=== PATIENT | male | born 1970 | race African-American/Black ===

== ENCOUNTER 2017-08-13 20:51 | Emergency (ER) | payer BC, OTHER ==
--- NOTE | 2017-08-13 21:18 | PDOC ---
Rapid Medical Evaluation Time Seen by Provider: 08/13/17 21:12 Medical Evaluation: Allergies Allergy/AdvReac Type Severity Reaction Status Date / Time No Known Allergies Allergy Verified 08/01/15 02:14 08/13/17 21:12 I have performed a brief in-person person evaluation of the patient. The patient presents with a chief complaint of lower back pain since falling downstairs last week. Reports pain is getting worse and it is difficult to sit on butt. Denies bowel or bladder dysfunction Pertinent physical exam findings: NAD unlabored breathing lungs clear bilaterally heart [id number] [id number]: tenderness over coccyx I have ordered the following: analgesia, lumbosacral and coccyx xray, urinalysis The patient will proceed to the ED for further evaluation.
[2017-08-13 21:19] VITALS: BP 166/98; PULSE 76; TEMP 97.4; BMI 23.4
[2017-08-13] MEDS ORDERED: KETOROLAC TROMETHAMINE 30 MG/1 ML VIAL IM ONE (21:19)
[2017-08-13 21:45] LABS: URINE APPEARANCE CLEAR; URINE BILIRUBIN NEGATIVE (NEGATIVE); URINE BLOOD NEGATIVE (NEGATIVE); URINE COLOR YELLOW; URINE GLUCOSE (UA) NEGATIVE (NEGATIVE); URINE KETONE NEGATIVE (NEGATIVE); URINE LEUK ESTERASE NEGATIVE (NEGATIVE); URINE NITRITE NEGATIVE (NEGATIVE); URINE PROTEIN NEGATIVE (NEGATIVE)
[2017-08-13] MEDS ORDERED: KETOROLAC TROMETHAMINE 60 MG/2 ML VIAL ONE (22:42)
[2017-08-13] MEDS ORDERED: KETOROLAC TROMETHAMINE 60 MG/2 ML VIAL IM ONE (22:44)
--- NOTE | 2017-08-13 22:57 | PDOC ---
History of Present Illness - General Chief Complaint: Pain Stated Complaint: PAIN Time Seen by Provider: 08/13/17 21:12 History Source: Patient Exam Limitations: No Limitations - History of Present Illness Initial Comments: 08/13/17 22:55 Best Contact: Pmhx:N/A Pshx:N/A Allergies:NKDA 47-year-old male presents to the emergency department with his complaining of pain to the coccyx bone. Patient states he slipped and fell onto the edge of a uncooperative step 9 days ago while at work. Patient states he did not fall down a flight of stairs but his coccyx bone make contact with the edge of one step. Pain is described as 8/10 dull nonradiating intermittent discomfort. Pain is exacerbated while sitting and touch and alleviated at rest. Patient denies any head injuries, neck pains, chest pain, shortness of breath, abdominal pains , bladder or bowel dysfunction. Occurred: reports: other (x9d) Past History - Past Medical History Allergies/Adverse Reactions: Allergies Allergy/AdvReac Type Severity Reaction Status Date / Time No Known Allergies Allergy Verified 08/13/17 21:15 Home Medications: Ambulatory Orders NK [No Known Home Medication] 08/13/17 COPD: No Other medical history: Pt denies - Suicide/Smoking/Psychosocial Hx Smoking History: Never smoked Have you smoked in the past 12 months: No Information on smoking cessation initiated: No Hx Alcohol Use: No Drug/Substance Use Hx: No Substance Use Type: None Review of Systems - Review of Systems Able to Perform ROS?: Yes Comments:: 08/13/17 22:54 CONSTITUTIONAL: Absent: fever, chills, diaphoresis, generalized weakness, malaise, loss of appetite HEENT: Absent: rhinorrhea, nasal congestion, throat pain, throat swelling, difficulty swallowing, mouth swelling, ear pain, eye pain, visual Changes CARDIOVASCULAR: Absent: chest pain, loss of consciousness, palpitations, irregular heart rate, peripheral edema RESPIRATORY: Absent: cough, shortness of breath, dyspnea with exertion, orthopnea, wheezing, stridor, hemoptysis GASTROINTESTINAL: Absent: abdominal pain, abdominal distension, nausea, vomiting, diarrhea, constipation, melena, hematochezia MUSCULOSKELETAL: +"tailbone" pain Absent: myalgia, arthralgia, joint swelling SKIN: Absent: rash, itching, pallor HEMATOLOGIC/IMMUNOLOGIC: Absent: easy bleeding, easy bruising, lymphadenopathy, frequent infections ENDOCRINE: Absent: unexplained weight gain, unexplained weight loss, heat intolerance, cold intolerance NEUROLOGIC: Absent: headache, focal weakness or paresthesias, dizziness, unsteady gait, seizure, mental status changes, bladder or bowel incontinence Is the patient limited Pakistani proficient: No *Physical Exam - Vital Signs Last Vital Signs Temp Pulse Resp BP Pulse Ox 97.4 F L 76 19 166/98 97 08/13/17 21:16 08/13/17 21:16 08/13/17 21:16 08/13/17 21:16 08/13/17 21:16 - Physical Exam Comments: 08/13/17 22:54 GENERAL: Well developed, well nourished. Awake and alert. No acute distress. HEENT: Normocephalic, atraumatic. PERRLA, EOMI. No conjunctival pallor. Sclera are non- icteric. Moist mucous membranes. Oropharynx is clear. NECK: Supple. Full ROM. No JVD. Carotid pulses 2+ and symmetric, without bruits. No thyromegaly. No lymphadenopathy. CARDIOVASCULAR: Regular rate and rhythm. No murmurs, rubs, or gallops. Distal pulses are 2+ and symmetric. PULMONARY: No evidence of respiratory distress. Lungs clear to auscultation bilaterally. No wheezing, rales or rhonchi. ABDOMINAL: Soft. Non-tender. Non-distended. No rebound or guarding. No organomegaly. Normoactive bowel sounds. MUSCULOSKELETAL +coccyx bone pain on palp Normal range of motion at all joints. No bony deformities or tenderness. No CVA tenderness. EXTREMITIES: No cyanosis. No clubbing. No edema. No calf tenderness. SKIN: Warm and dry. Normal capillary refill. No rashes. No jaundice. NEUROLOGICAL: Alert, awake, appropriate. Cranial nerves 2-12 intact. No deficits to light touch and temperature in face, upper extremities and lower extremities. No motor deficits in the in face, upper extremities and lower extremities. Normoreflexic in the upper and lower extremities. Normal speech. Toes are down- going bilaterally. Gait is normal without ataxia. PSYCHIATRIC: Cooperative. Good eye contact. Appropriate mood and affect. ED Treatment Course - ADDITIONAL ORDERS Additional order review: Laboratory Results 08/13/17 21:28 Urine Color Yellow Urine Appearance Clear Urine pH 7.0 Ur Specific [place] 1.025 Urine Protein Negative Urine Glucose (UA) Negative Urine Ketones Negative Urine Blood Negative Urine Nitrite Negative Urine Bilirubin Negative Urine Urobilinogen 2.0 Ur Leukocyte Esterase Negative - Medications Given in the ED: ED Medications Discontinued Medications Generic Name Dose Route Start Last Admin Trade Name Yves PRN Reason Stop Dose Admin Ketorolac Tromethamine 30 mg 08/13/17 21:19 08/13/17 22:45 Toradol Injection - IM 08/13/17 21:20 Not Given ONCE ONE Ketorolac Tromethamine 60 mg 08/13/17 22:44 08/13/17 22:45 Toradol Injection - IM 08/13/17 22:45 60 mg ONCE ONE Administration *DC/Admit/Observation/Transfer Diagnosis at time of Disposition: Coccyx pain - Discharge Dispostion Disposition: HOME Condition at time of disposition: Stable Admit: No - Referrals Referrals: John Kaur MD [Primary Care Provider] - Miguel Wise MD [Staff Physician] - - Patient Instructions Printed Discharge Instructions: DI for Low Back Pain Additional Instructions: Ice; 20 mins on alternating with 20 mins off for 48 hours while awake. Rest Elevate Follow up with your orthopedic surgeon or the one listed on the discharge form. Return to the ER for severe/persistent/worsening symptoms, extremity numbness/ tingling sensation. - Post Discharge Activity Forms/Work/School Notes: Back to Work
== END 2017-08-13 22:30 | disposition home or self-care (01) ==
LOC: JERFT 20:51
PROC: 3E0233Z Introduction of Anti-inflammatory into Muscle, Percutaneous Approach (ICD-10-PCS; principal; 2017-08-13)
DX: M53.3 Sacrococcygeal disorders, not elsewhere classified (principal)
CPT/HCPCS: 72220-TC-FY; 81003; 99281-25

== ENCOUNTER 2019-12-06 10:58 | Emergency (ER) | payer BC, OTHER ==
[2019-12-06 11:03] VITALS: BP 128/80; PULSE 89; TEMP 98; BMI 32.3
--- NOTE | 2019-12-06 11:06 | PDOC ---
Suture Removal/Wound Check HPI - History of Present Illness Chief Complaint: Suture/Staple Removal(Here) Stated Complaint: SUTURE REMOVAL Time Seen by Provider: 12/06/19 11:02 History Source: Yes: Patient Exam Limitations: Yes: No Limitations Treated at: [facility] Date of Last ED visit: 11/30/19 - Previous ED Treatment Type of procedure performed on last visit: Yes: Laceration Repair Tetanus Immunization: Yes: Up to Date Past History - Travel History Traveled outside of the country in the last 30 days: No Close contact w/someone who was outside of country & ill: No - Medical History Allergies/Adverse Reactions: Allergies Allergy/AdvReac Type Severity Reaction Status Date / Time No Known Allergies Allergy Verified 08/13/17 21:15 Home Medications: Ambulatory Orders NK [No Known Home Medication] 08/13/17 COPD: No - Immunization History Immunization Up to Date: No - Psycho-Social/Smoking History Patient Lives Alone: No Lives with/in: spouse/SO Smoking History: Never smoked Have you smoked in the past 12 months: No Information on smoking cessation initiated: No - Substance Abuse Hx (Audit-C & DAST Scrn) How often the patient has a drink containing alcohol: Never Score: In Men: 4 or > Positive; In Women: 3 or > Positive: 0 Screen Result (Pos requires Nsg. Audit-10AR): Negative In the last yr the pt used illegal drug/Rx for NonMed reason: No Score: Yes response is considered Positive: 0 Screen Result (Positive result requires Nsg. DAST-10): Negative Suture Removal/Wound Check PE - Physical Exam Laceration/Wound Check Symptoms: reports: None Current Severity Level: None Maximum Severity Level: None Pain Localization: None Comments: 12/06/19 11:04 scalp Pain Radiation: None *Review of Systems - Review of Systems Able to Perform ROS?: Yes Constitutional: No: Symptoms Reported HEENTM: No: Symptoms Reported Cardiac (ROS): No: Lightheadedness ABD/GI: No: Nausea Musculoskeletal: No: Symptoms Reported Integumentary: No: Symptoms Reported Neurological: No: Headache, Dizziness Hematologic/Lymphatic: No: Symptoms Reported *Physical Exam - Vital Signs Last Vital Signs Temp Pulse Resp BP Pulse Ox 98.0 F 89 18 128/80 100 12/06/19 11:00 12/06/19 11:00 12/06/19 11:00 12/06/19 11:00 12/06/19 11:00 - Physical Exam General Appearance: Yes: Nourished, Appropriately Dressed. No: Apparent Distress HEENT: positive: EOMI Neck: negative: Decreased range of motion Respiratory/Chest: negative: Respiratory Distress Gastrointestinal/Abdominal: negative: Distended Musculoskeletal: negative: Decreased Range of Motion Extremity: positive: Normal Inspection Integumentary: positive: Normal Color, Warm, Moist Neurologic: positive: Motor Strength 5/5 (ambulatory) Medical Decision Making - Medical Decision Making 12/06/19 11:04 CC: here for staple removal, no complaints otherwise exam: dry intact lac with 4 pari Plan: removed without difficulty Discharge - Discharge Information Problems reviewed: Yes Clinical Impression/Diagnosis: Removal of staple Condition: Improved Disposition: HOME - Follow up/Referral - Patient Discharge Instructions Patient Printed Discharge Instructions: DI for Suture Removal Additional Instructions: keep area clean and dry tofday to allow scab to form to area where I removed the pari - Post Discharge Activity
== END 2019-12-06 11:11 | disposition home or self-care (01) ==
LOC: JER 10:58
DX: S01.01XA Laceration without foreign body of scalp, initial encounter (principal); Z48.02 Encounter for removal of sutures
CPT/HCPCS: 99281-25